=== PATIENT | male | born 1965 | race Caucasian/White ===

== ENCOUNTER 2016-07-26 05:50 | Day surgery (SDC) | payer MEDICARE, MEDICAID ==
[~2016-07-26] VITALS: Ht 177.8 cm; Wt 108.0 kg
--- NOTE | 2016-08-03 14:37 | OR ---
ADMIT: 07/26/2016 RM/LOC: [facility] MR#: [id number] [address] [id number] CHRISTINA CARCAMO [address] [place] [address] Operative/Delivery Room Report SEX: M AGE: 51 : 1965 SURGERY DATE: 07/26/2016 SURGEON: Abiel Shirley MD PROCEDURE: RV coil lead impedance test. DESCRIPTION OF PROCEDURE: With the assistance of anesthesia, conscious sedation was performed. One joule of energy was delivered in a synced fashion. The patient was in sinus rhythm and maintained in sinus rhythm. The RV lead measured coil impedance at time of shock was 76 ohms. No complications are noted. Abiel Shirley MD/ njv JOB #: [id number] CC: Capo Shirley, Attending Physician Ana Recinos, Family Physician
== END 2016-07-26 08:45 | disposition home or self-care (01) ==
LOC: SSS 05:50
DX: I42.9 Cardiomyopathy, unspecified (principal); I11.0 Hypertensive heart disease with heart failure; J44.9 Chronic obstructive pulmonary disease, unspecified; I50.22 Chronic systolic (congestive) heart failure; E78.5 Hyperlipidemia, unspecified; G47.33 Obstructive sleep apnea (adult) (pediatric); F17.210 Nicotine dependence, cigarettes, uncomplicated; Z90.49 Acquired absence of other specified parts of digestive tract; Z86.73 Personal history of transient ischemic attack (TIA), and cerebral infarction without residual deficits; F41.9 Anxiety disorder, unspecified; Z99.89 Dependence on other enabling machines and devices